=== PATIENT | male | born 1945 | race Caucasian/White ===

== ENCOUNTER 2019-12-31 11:18 | Outpatient (RCR) | payer MEDICARE, OTHER, SELFPAY ==
[2019-12-31 11:34] VITALS: BMI 26.6
[2019-12-31 11:40] VITALS: BP 117/58; PULSE 66; RESP 16; TEMP 36.2; O2SAT 100
== END 2020-01-29 23:59 | disposition home or self-care (01) ==
LOC: GILAB 11:18
PROVIDERS: Family Provider Family Medicine; PCP Family Medicine; Visit Provider Family Medicine
DX: D50.9 Iron deficiency anemia, unspecified (principal)
CPT/HCPCS: 96365; J1439

== ENCOUNTER 2020-01-24 12:06 | Outpatient (CLI) | payer MEDICARE, OTHER, SELFPAY | END 2020-01-24 12:07 | disposition home or self-care (01) | PROVIDERS: Family Provider Family Medicine; PCP Family Medicine; Visit Provider Internal Medicine Medical Oncology | DX: D50.9 Iron deficiency anemia, unspecified (principal) | CPT/HCPCS: 96365 ==